=== PATIENT | female | born 1970 | race Caucasian/White ===

== ENCOUNTER 2024-04-09 14:29 | Inpatient (IN) | payer BC, OTHER ==
[~2024-04-09] VITALS: Ht 158.8 cm; Wt 82.6 kg
[2024-04-09 15:03] LABS: BASOPHILS % (AUTO) 0.6 % (0.0-2.0); EOSINOPHILS # (AUTO) 0.2 K/uL (0.0-0.7); EOSINOPHILS % (AUTO) 2.9 % (0.0-6.0); HEMATOCRIT 42 % (33-45); HEMOGLOBIN 14.5 g/dL (11.5-14.8); LYMPHOCYTES # (AUTO) 1.7 K/uL (0.8-4.8); LYMPHOCYTES % (AUTO) 21.2 % (20.0-44.0); MEAN CORPUSCULAR HEMOGLOBIN 30 PG (26.0-33.0); MEAN CORPUSCULAR HGB CONC 35 g/dl (31.0-36.0); MEAN CORPUSCULAR VOLUME 87 fL (82-100); MONOCYTES # (AUTO) 0.5 K/uL (0.1-1.30); MONOCYTES % (AUTO) 6.6 % (2.0-12.0); NEUTROPHILS # (AUTO) 5.4 K/uL (1.8-8.9); NEUTROPHILS % (AUTO) 68.7 % (43.0-81.0); PLATELET COUNT (AUTO) 188 K/uL (150-450); RED BLOOD CELL COUNT(AUTO) 4.83 MIL/uL (4.0-5.2); RED CELL DISTRIBUTION WIDTH 13.9 % (11.5-15.0); WHITE BLOOD COUNT (AUTO) 7.8 K/uL (4.3-11.0)
[2024-04-09 15:09] LABS: CALCIUM, SERUM 8.9 mg/dL (8.5-10.1); CREATININE 0.9 mg/dL (0.6-1.3); POTASSIUM 3.6 mmol/L (3.5-5.1)
[2024-04-09 15:21] LABS: INR 1.47 (0.91-1.10); PARTIAL THROMBOPLASTIN TIME 27.2 SEC (24.3-34.3); PROTHROMBIN TIME 15.2 SECS (9.2-11.1)
[2024-04-09] MEDS ORDERED: MORPHINE SULFATE INJ 2 MG/ML DISP.SYRIN ONE (15:24)
[2024-04-09] MEDS ORDERED: SERT50TA PO (15:30)
[2024-04-09] MEDS ORDERED: ROSU5TAB13 PO (15:30)
[2024-04-09] MEDS ORDERED: LEVO100T9 PO (15:30)
[2024-04-09] MEDS ORDERED: TRAZ-182 PO (15:30)
[2024-04-09] MEDS ORDERED: HYDR25TA4 PO (15:30)
[2024-04-09] MEDS ORDERED: CEFA500C PO (15:30)
[2024-04-09] MEDS ORDERED: TAMO20TA4 PO (15:30)
[2024-04-09] MEDS: IV NS 0.9% 1,000 ML IV ONE (15:30)
[2024-04-09] MEDS ORDERED: GABA-532 PO (15:30)
[2024-04-09] MEDS: MORPHINE SULFATE INJ 2 MG/ML DISP.SYRIN IV ONE (15:32)
[2024-04-09 15:50] LABS: D-DIMER 0.82 mg/L(FEU (0.17-0.50)
[2024-04-09 16:40] LABS: FIBRINOGEN ACTIVITY < 50 Mg/dL (213-485)
[2024-04-09] MEDS ORDERED: LORAZEPAM INJ 2 MG/ML VIAL ONE (17:12)
[2024-04-09] MEDS ORDERED: ANESTHESIA TRAY IN PYXIS 1 EA TRAY MC ONE (17:22)
[2024-04-09] MEDS ORDERED: FENTANYL PF 100MCG/2ML AMPUL ONE (17:24)
[2024-04-09] MEDS ORDERED: MIDAZOLAM HCL 2 MG/2ML VIAL ONE (17:24)
[2024-04-09] MEDS: PHYTONADIONE INJ 10 MG/1 ML AMPUL IM STA (17:30)
[2024-04-09] MEDS: LORAZEPAM INJ 2 MG/ML VIAL IV ONE (17:35)
[2024-04-09] MEDS ORDERED: SILVER NITRATE APPLICATOR 1 EA BOX ONE (19:28)
[2024-04-09] MEDS ORDERED: LABETALOL HCL IV 100MG VIAL ONE (19:58)
[2024-04-09 20:00] VITALS: BP 153/87; TEMP 98.4; O2SAT 93
[2024-04-09 20:15] VITALS: BP 153/82; TEMP 98.4; O2SAT 93
[2024-04-09] MEDS ORDERED: LABETALOL 20 MG/4 ML VIAL IV PRN (20:30)
[2024-04-09] MEDS ORDERED: FENTANYL PF 100MCG/2ML AMPUL IV PRN ×2 (20:30)
== END 2024-04-09 22:50 | disposition home or self-care (01) | DRG 761 ==
LOC: ER 14:32 → MED 17:06
PROVIDERS: ADMIT Obstetrics & Gynecology; ATTEND Obstetrics & Gynecology
PROC: 0UC98ZZ Extirpation of Matter from Uterus, Via Natural or Artificial Opening Endoscopic (ICD-10-PCS; principal; 2024-04-09)
PROC: 0UPD8HZ Removal of Contraceptive Device from Uterus and Cervix, Via Natural or Artificial Opening Endoscopic (ICD-10-PCS; 2024-04-09)
DX: T19.3XXA Foreign body in uterus, initial encounter (principal); Z30.432 Encounter for removal of intrauterine contraceptive device; W44.H0XA Other sharp object unspecified, entering into or through a natural orifice, initial encounter; F41.9 Anxiety disorder, unspecified; I10 Essential (primary) hypertension; E03.9 Hypothyroidism, unspecified; Z85.3 Personal history of malignant neoplasm of breast; Z98.891 History of uterine scar from previous surgery; Z90.12 Acquired absence of left breast and nipple; Y76.2 Prosthetic and other implants, materials and accessory obstetric and gynecological devices associated with adverse incidents; N93.9 Abnormal uterine and vaginal bleeding, unspecified; Y92.89 Other specified places as the place of occurrence of the external cause; E78.00 Pure hypercholesterolemia, unspecified
CPT/HCPCS: 36415; 71045-TC; 76856-TC; 80048-TC; 85025-TC; 85378-TC; 85385-TC; 85730-TC; 86850-TC; A4217; G0378; J0690; J2060; J2250; J2270; J2405; J2704; J2765; J3010; J3430; J3490; J7030